=== PATIENT | female | born 1985 | race Caucasian/White ===

== ENCOUNTER 2023-01-28 11:57 | Outpatient (RCR) | payer BC, SELFPAY | END 2023-04-21 08:28 | disposition home or self-care (01) | PROVIDERS: PCP Family Medicine; Visit Provider Family Medicine | DX: N81.10 Cystocele, unspecified (principal); N81.6 Rectocele; Z90.710 Acquired absence of both cervix and uterus; Z51.89 Encounter for other specified aftercare; R27.8 Other lack of coordination; M25.551 Pain in right hip; K59.00 Constipation, unspecified | CPT/HCPCS: 97110; 97112; 97140; 97162; 97535 ==